=== PATIENT | female | born 1965 | race Caucasian/White ===

== ENCOUNTER 2019-09-13 11:12 | Emergency (ER) | payer BC, OTHER ==
[2019-09-13 11:21] VITALS: BP 159/63; PULSE 91
[2019-09-13] MEDS ORDERED: Albuterol/Ipratropium 3.0-0.5 MG/3 ML Neb Soln NEB ONE (11:28)
--- NOTE | 2019-09-13 12:15 | EDM.PDOC ---
ED HPI GENERAL MEDICAL PROBLEM - General Chief Complaint: Respiratory Problem Stated Complaint: UPPER RESPIRATORY PROBLEM Time Seen by Provider: 09/13/19 11:18 Source of Information: Reports: Patient, Family History Limitations: Reports: No Limitations - History of Present Illness INITIAL COMMENTS - FREE TEXT/NARRATIVE: The patient presents with a cough, congestion, and fever for about a week. She was evaluated at the walk in clinic and she was given some prednisone and an inhaler. She is not getting better. She has some shortness of breath at times. She has no chest pain. She has no history of asthma. She does not smoke. Onset: Gradual Duration: Week(s): Severity: Moderate Improves with: Reports: None Worsens with: Reports: None Associated Symptoms: Reports: Cough, Fever/Chills, Shortness of Breath. Denies : Chest Pain, Headaches, Nausea/Vomiting Generalized Pain Score (Numeric/FACES): 2 - Related Data Allergies Allergy/AdvReac Type Severity Reaction Status Date / Time No Known Allergies Allergy Verified 09/13/19 11:21 Home Meds: Home Meds Albuterol Sulfate [Proair Respiclick] 2 puff INH Q4H PRN 09/13/19 [History] Codeine/Promethazine [Phenergan with Codeine] 5 - 10 ml PO Q6HR PRN #300 ml 10/29 [Rx] Doxycycline [Vibramycin] 100 mg PO BID #14 cap 09/13/19 [Rx] Omeprazole Magnesium [Prilosec Otc] 20 mg PO Q48H 09/13/19 [History] Past Medical History Respiratory History: Reports: Sleep Apnea Gastrointestinal History: Reports: GERD Hematologic History: Reports: Other (See Below) Other Hematologic History: senocytosis - Past Surgical History GI Surgical History: Reports: Appendectomy, Cholecystectomy, Other (See Below) Other GI Surgeries/Procedures: splenectomy Social & Family History - Tobacco Use Smoking Status *Q: Never Smoker - Caffeine Use Caffeine Use: Reports: Coffee, Soda, Tea - Recreational Drug Use Recreational Drug Use: No ED ROS GENERAL - Review of Systems Review Of Systems: See Below Constitutional: Reports: Fever HEENT: Reports: No Symptoms Respiratory: Reports: Shortness of Breath, Cough Cardiovascular: Reports: No Symptoms Endocrine: Reports: No Symptoms GI/Abdominal: Reports: No Symptoms : Reports: No Symptoms Musculoskeletal: Reports: No Symptoms ED EXAM, GENERAL - Physical Exam Exam: See Below Exam Limited By: No Limitations General Appearance: Alert, No Apparent Distress Ears: Normal External Exam Nose: Normal Inspection Head: Atraumatic, Normocephalic Neck: Normal Inspection Respiratory/Chest: No Respiratory Distress, Wheezing Cardiovascular: Regular Rate, Rhythm, No Edema, No Murmur GI/Abdominal: Soft, Non-Tender, No Organomegaly, No Mass Back Exam: Normal Inspection Course - Vital Signs Last Recorded V/S: Last Vital Signs Temp 98.6 F 09/13/19 11:18 Pulse 91 09/13/19 11:18 Resp 18 09/13/19 11:18 BP 159/63 H 09/13/19 11:18 Pulse Ox 94 L 09/13/19 12:43 - Orders/Labs/Meds Orders: Active Orders 24 hr Category Date Time Status RT Aerosol Therapy [RC] ASDIRECTED Care 09/13/19 11:28 Active RT Aerosol Therapy [RC] ASDIRECTED Care 09/13/19 12:28 Active CXR [Chest 2V] [CR] Stat Exams 09/13/19 11:28 Taken Meds: Medications Discontinued Medications Generic Name Dose Route Start Last Admin Trade Name Freq PRN Reason Stop Dose Admin Albuterol 2.5 mg 09/13/19 12:28 09/13/19 12:43 Proventil Neb Soln NEB 09/13/19 12:29 2.5 mg ONETIME ONE Administration Albuterol/Ipratropium 3 ml 09/13/19 11:28 09/13/19 11:36 Duoneb 3.0-0.5 Mg/3 Ml NEB 09/13/19 11:29 3 ml ONETIME ONE Administration - Re-Assessments/Exams Free Text/Narrative Re-Assessment/Exam: 09/13/19 12:15 I ordered a CXR, influenza and a duoneb. 09/13/19 13:05 She is still wheezing so I ordered another albuterol. She sounds better after that. I will get her on some doxycycline and have her use the inhaler and something for the cough. Departure - Departure Time of Disposition: 13:20 Disposition: Home, Self-Care 01 Condition: Good Clinical Impression: Bronchitis Reactive airway disease Qualifiers: Asthma severity: mild Asthma persistence: intermittent Asthma complication type : with acute exacerbation Qualified Code(s): J45.21 - Mild intermittent asthma with (acute) exacerbation - Discharge Information *PRESCRIPTION DRUG MONITORING PROGRAM REVIEWED*: No *COPY OF PRESCRIPTION DRUG MONITORING REPORT IN PATIENT ALFRED: No Prescriptions: Codeine/Promethazine [Phenergan with Codeine] 5 - 10 ml PO Q6HR PRN #300 ml PRN Reason: Cough Doxycycline [Vibramycin] 100 mg PO BID #14 cap Referrals: Zainab Gonsales MD [Primary Care Provider] - 1 Week Forms: ED Department Discharge Additional Instructions: Take the doxycycline 2 times per day for 7 days. Take the phenergan with codeine as needed for any cough. Use the albuterol inhaler 2 puffs every 6 hours and use the inhaler. Please return if you are worse. Sepsis Event Note - Evaluation Sepsis Screening Result: No Definite Risk - Focused Exam Vital Signs: Vital Signs Temp Pulse Resp BP Pulse Ox Pulse Ox 09/13/19 12:43 94 L 09/13/19 11:36 94 L 09/13/19 11:18 98.6 F 91 18 159/63 H 92 L Date Exam was Performed: 09/13/19 Time Exam was Performed: 13:05 - My Orders Last 24 Hours: My Active Orders 09/13/19 11:28 RT Aerosol Therapy [RC] ASDIRECTED CXR [Chest 2V] [CR] Stat 09/13/19 12:28 RT Aerosol Therapy [RC] ASDIRECTED - Assessment/Plan Last 24 Hours: My Active Orders 09/13/19 11:28 RT Aerosol Therapy [RC] ASDIRECTED CXR [Chest 2V] [CR] Stat 09/13/19 12:28 RT Aerosol Therapy [RC] ASDIRECTED
[2019-09-13] MEDS ORDERED: Albuterol 0.083% 2.5 MG/3 ML Neb Soln NEB ONE (12:28)
--- NOTE | 2019-09-14 07:21 | CR ---
Chest: Two views of the chest were obtained. Comparison: Prior chest x-ray of 01/19/11. Heart size and mediastinum are normal. Lung markings are slightly increased most likely representing mild bronchitis. Lungs otherwise are clear. Bony structures show nothing acute. Surgical clips seen within the upper abdomen. Impression: 1. Lung markings are slightly increased likely representing bronchitis. 2. No other acute finding is seen. Diagnostic code #3 This report was dictated in [place] Standard Time
== END 2019-09-13 13:15 | disposition home or self-care (01) ==
LOC: JD.ED 11:12
DX: J45.21 Mild intermittent asthma with (acute) exacerbation (principal); K21.9 Gastro-esophageal reflux disease without esophagitis; Z79.899 Other long term (current) drug therapy
CPT/HCPCS: 71046; 71046-26; 87804; 94640; 99283; 99284-25; J7620-GY

== ENCOUNTER 2020-11-07 10:37 | Day surgery (SDC) | payer OTHER ==
[~2020-11-07 10:37] MED LIST: Albuterol 0.083% 2.5 MG/3 ML Neb Soln NEB SCH; EPINEPHrine 1 MG/ML 30 ML MDV IRR SCH; Lactated Ringers 1,000 ML IV SCH; Lidocaine 1%/Sod Bicarbonate in NS 8.4% 1 ML Syringe IDERM PRN; Sodium Chloride 0.9% 10 ML Syringe FLUSH PRN
--- NOTE | 2020-11-07 11:04 | PCM.PREANE ---
Preanesthetic Assessment - Procedure Proposed Procedure: Right knee video arthroscopy - Anesthesia/Transfusion/Family Hx Anesthesia History: Prior Anesthesia Without Reaction Family History of Anesthesia Reaction: No Transfusion History: No Prior Transfusion(s) - Review of Systems General: No Symptoms Pulmonary: No Symptoms Cardiovascular: No Symptoms Gastrointestinal: No Symptoms Neurological: No Symptoms Other: Reports: None - Physical Assessment NPO Status Date: 11/06/20 NPO Status Time: 00:00 Height: 1.65 m Weight: 93.168 kg ASA Class: 2 Mental Status: Alert & Oriented x3 Airway Class: Mallampati = 3 Dentition: Reports: Normal Dentition Thyro-Mental Finger Breadths: 2 Mouth Opening Finger Breadths: 2 ROM/Head Extension: Full Lungs: Clear to Auscultation, Normal Respiratory Effort Cardiovascular: Regular Rate, Regular Rhythm - Allergies Allergies/Adverse Reactions: Allergies Allergy/AdvReac Type Severity Reaction Status Date / Time No Known Allergies Allergy Verified 11/06/20 15:15 - Blood Blood Available: No Product(s) Available: None - Anesthesia Plan Pre-Op Medication Ordered: None - Acknowledgements Anesthesia Type Planned: General Anesthesia Pt an Appropriate Candidate for the Planned Anesthesia: Yes Alternatives and Risks of Anesthesia Discussed w Pt/Guardian: Yes Pt/Guardian Understands and Agrees with Anesthesia Plan: Yes PreAnesthesia Questionnaire HEENT History: Reports: None Cardiovascular History: Reports: None Respiratory History: Reports: Sleep Apnea, Other (See Below) Other Respiratory History: bronchitis, post viral reactive airway disease Gastrointestinal History: Reports: GERD, Other (See Below) Other Gastrointestinal History: asplenia, colon polyps, gastritis with hemorrohage, esophagitis Genitourinary History: Reports: Other (See Below) Other Genitourinary History: right breast mass, dense breasts PEDIATRIC IMMUNOLOGIST History: Reports: None Musculoskeletal History: Reports: None Neurological History: Reports: None Psychiatric History: Reports: None Hematologic History: Reports: Other (See Below) Other Hematologic History: thrombocytopenia, hereditary spherocytosis, asplenia, leukocytosis Immunologic History: Reports: None Oncologic (Cancer) History: Reports: None Dermatologic History: Reports: None - Infectious Disease History Infectious Disease History: Reports: None - Past Surgical History Head Surgeries/Procedures: Reports: None HEENT Surgical History: Reports: Eye Surgery Cardiovascular Surgical History: Reports: None Respiratory Surgical History: Reports: None GI Surgical History: Reports: Appendectomy, Cholecystectomy, EGD, Other (See Below) Other GI Surgeries/Procedures: splenectomy Female Surgical History: Reports: None Male Surgical History: Reports: None Endocrine Surgical History: Reports: None Neurological Surgical History: Reports: None Musculoskeletal Surgical History: Reports: None Oncologic Surgical History: Reports: None Dermatological Surgical History: Reports: None - SUBSTANCE USE Tobacco Use Status *Q: Former Tobacco User Tobacco Use Within Last Twelve Months: No Second Hand Smoke Exposure: No Days Per Week of Alcohol Use: 1 Number of Drinks Per Day: 1 Total Drinks Per Week: 1 Recreational Drug Use History: No - HOME MEDS Home Medications: Home Meds Albuterol Sulfate [Proair Respiclick] 2 puff INH Q4H PRN 09/13/19 [History] Omeprazole Magnesium [Prilosec Otc] 20 mg PO Q48H 09/13/19 [History] Calcium Carbonate [Calcium] 600 mg PO DAILY 11/06/20 [History] Lactobacillus Combination No.4 [Probiotic] 1 cap PO DAILY 11/06/20 [History] Multivitamin 1 tab PO DAILY 11/06/20 [History] Acetaminophen/HYDROcodone [[place] 325-5 MG] 1 - 2 tab PO Q6H PRN #15 tablet 11/07/20 [Rx] Aspirin [Aspirin EC] 325 mg PO BID #84 tab 11/07/20 [Rx] - CURRENT (IN HOUSE) MEDS Current Meds: Current Medications Albuterol (Albuterol 0.083% 2.5 Mg/3 Ml Neb Soln) 2.5 mg NEB ONETIME RICHARD Stop: 11/07/20 18:00 Epinephrine HCl (Epinephrine 1 Mg/Ml 30 Ml Mdv) 3 mg IRR ONETIME RICHARD Stop: 11/07/20 18:00 Lactated Ringer's (Ringers, Lactated) 1,000 mls @ 125 mls/hr IV ASDIRECTED RICHARD Stop: 11/07/20 23:00 Lidocaine/Sodium Bicarbonate (Lidocaine 1%/Sod Bicarbonate In Ns 8.4% 1 Ml Syringe) 0.25 ml IDERM ONETIME PRN PRN Reason: Prior to IV Start Stop: 11/07/20 23:00 Sodium Chloride (Sodium Chloride 0.9% 10 Ml Syringe) 10 ml FLUSH ASDIRECTED PRN PRN Reason: Keep Vein Open Stop: 11/07/20 23:00
[2020-11-07] MEDS ORDERED: fentaNYL 250 MCG/5 ML SDV ONE (11:14)
[2020-11-07] MEDS ORDERED: Ondansetron 4 MG/2 ML SDV ONE (11:14)
[2020-11-07] MEDS ORDERED: Propofol 200 MG/20 ML SDV ONE (11:14)
[2020-11-07] MEDS ORDERED: Midazolam 1 MG/ML 2 ML SDV ONE (11:14)
[2020-11-07] MEDS ORDERED: Lidocaine 1% 4 ML ONE (11:15)
[2020-11-07] MEDS ORDERED: Ketorolac 30 MG/ML SDV ONE (11:15)
[2020-11-07] MEDS ORDERED: ceFAZolin 1 GM Vial ONE (11:19)
[2020-11-07] MEDS ORDERED: Bupivacaine 0.25% 10 ML SDV ONE (11:20)
[2020-11-07] MEDS ORDERED: HYDROmorphone 1 MG/ML Syringe ONE (12:49)
[2020-11-07] MEDS ORDERED: fentaNYL 100 MCG/2 ML SDV IVPUSH PRN (13:22)
--- NOTE | 2020-11-07 13:23 | PCM.POSTAN ---
POST ANESTHESIA ASSESSMENT - MENTAL STATUS Mental Status: Somnolent - VITAL SIGNS Vital Signs: Last Vital Signs Temp 36.9 C 11/07/20 10:45 Pulse 73 11/07/20 10:45 Resp 16 11/07/20 10:45 BP 132/71 11/07/20 10:45 Pulse Ox 97 11/07/20 10:45 - RESPIRATORY Respiratory Status: Respiratory Rate WNL, Airway Patent, O2 Saturation Stable, Supplemental Oxygen - CARDIOVASCULAR CV Status: Pulse Rate WNL, Blood Pressure Stable - GASTROINTESTINAL GI Status: No Symptoms - PAIN Pain Score: 0 - POST OP HYDRATION Hydration Status: Adequate & Stable - OBSERVATIONS Free Text/Narrative:: NO ANESTHESIA COMPLICATIONS NOTED
--- NOTE | 2020-11-07 14:16 | PCM48HPAN ---
Post Anesthesia Note - EVALUATION WITHIN 48HRS OF ANESTHETIC Vital Signs in Normal Range: Yes Patient Participated in Evaluation: Yes Respiratory Function Stable: Yes Airway Patent: Yes Cardiovascular Function Stable: Yes Hydration Status Stable: Yes Pain Control Satisfactory: Yes Nausea and Vomiting Control Satisfactory: Yes Mental Status Recovered: Yes Vital Signs: Last Vital Signs Temp 36.6 C 11/07/20 14:15 Pulse 63 11/07/20 14:15 Resp 14 11/07/20 14:15 BP 112/53 L 11/07/20 14:15 Pulse Ox 97 11/07/20 14:15
[2020-11-07 15:10] VITALS: BP 110/47; PULSE 62
--- NOTE | 2020-11-21 07:00 | PCM.OPNOTE ---
- General Post-Op/Procedure Note Date of Surgery/Procedure: 11/07/20 Operative Procedure(s): right knee video arthroscopy with partial medial and lateral meniscectomy Pre Op Diagnosis: right knee medial meniscus tear Post-Op Diagnosis: same with lateral meniscus tear Anesthesia Technique: General LMA, Local Primary Surgeon: Joshua Rodriguez Anesthesia Provider: Deon Ambrose Medical Editor: Mary Murphy EBAnil in mLs: 5 Complications: None Condition: Good
--- NOTE | 2020-11-21 07:35 | OR ---
DATE OF OPERATION: 11/07/2020 SURGEON: Joshua Rodriguez MD OPERATION PERFORMED: Right knee video arthroscopy with partial medial and lateral meniscectomy. PREOPERATIVE DIAGNOSIS: Right knee medial meniscus tear. POSTOPERATIVE DIAGNOSIS: Right knee medial meniscus tear with lateral meniscus tear. ANESTHESIA: General LMA with local. ANESTHESIA PROVIDER: Harry Horn. INSPECT[employer] HEAD: Mary Murphy PA-C ESTIMATED BLOOD LOSS: Less than 5 mL. COMPLICATIONS: None. CONDITION: Stable. DESCRIPTION OF PROCEDURE: The patient was identified in the preoperative holding area. Proper site was marked and identified by surgeon. The patient was taken back to the operative theater, where after adequate anesthesia, the patient's left lower extremity was placed in a well leg ram. Right lower extremity had a nonsterile tourniquet applied, which was then placed in a C-clamp ram. Foot of the bed was then lowered. Right lower extremity was sterilely prepped and draped in the usual sterile fashion. OR time-out was performed. The patient received 2 g IV Ancef. At this time, right lower extremity was exsanguinated. Tourniquet was insufflated to 250 mmHg. Standard anterior lateral portal incision was made. Scope trocar was introduced. 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 Attention was turned to the medial compartment. With the use of a spinal needle, anteromedial portal was created. The patient was noted to have a posterior flap tear, roughly 20% of the posterior horn of the medial meniscus. A partial medial meniscectomy was then performed back to a stable rim. The patient had some grade 1/2 chondromalacia on the medial femoral condyle, but otherwise none on the tibial plateau. Attention was turned to the notch. ACL was intact in the notch. Lateral compartment did show a discoid meniscus with tearing of the central portion. At this time, a partial lateral meniscectomy back to a stable border was also done. Excess saline was drained from the knee. 3-0 nylon suture was used for closure of the skin. The patient tolerated the procedure well, was placed in a sterile soft dressing, and sent to the PACU in stable condition. MMODAL /[id number]
== END 2020-11-07 14:56 | disposition home or self-care (01) ==
LOC: JD.SDS 10:37
PROVIDERS: ATTEND Orthopaedic Surgery
DX: S83.281A Other tear of lateral meniscus, current injury, right knee, initial encounter (principal); S83.241A Other tear of medial meniscus, current injury, right knee, initial encounter; M22.41 Chondromalacia patellae, right knee; D47.3 Essential (hemorrhagic) thrombocythemia; D58.0 Hereditary spherocytosis; Q89.01 Asplenia (congenital); G47.30 Sleep apnea, unspecified; Z79.82 Long term (current) use of aspirin; Z79.899 Other long term (current) drug therapy; Z87.891 Personal history of nicotine dependence; Z98.890 Other specified postprocedural states; X58.XXXA Exposure to other specified factors, initial encounter
CPT/HCPCS: 29880; J0690; J1170; J1885; J2250; J2405; J2704; J3010; J3490; J7120; 01400

== ENCOUNTER 2021-07-23 06:50 | Day surgery (SDC) | payer OTHER ==
[~2021-07-23 06:50] MED LIST changes: -Albuterol 0.083% 2.5 MG/3 ML Neb Soln NEB SCH; -EPINEPHrine 1 MG/ML 30 ML MDV IRR SCH; -Sodium Chloride 0.9% 10 ML Syringe FLUSH PRN; +Sodium Chloride 0.9% 10 ML Syringe FLUSH SCH
[2021-07-23] MEDS ORDERED: Bupivacaine 0.5% 30 ML SDV ONE (07:27)
[2021-07-23] MEDS ORDERED: Lactated Ringers 1,000 ML IV SCH (07:30)
[2021-07-23] MEDS ORDERED: Albuterol/Ipratropium 3.0-0.5 MG/3 ML Neb Soln NEB PRN (07:35)
[2021-07-23] MEDS ORDERED: Ondansetron 4 MG/2 ML SDV IVPUSH PRN (07:36)
[2021-07-23] MEDS ORDERED: fentaNYL 100 MCG/2 ML SDV IVPUSH PRN (07:36)
[2021-07-23] MEDS ORDERED: HYDROmorphone 0.5 MG/0.5 ML Syringe IVPUSH PRN (07:36)
[2021-07-23] MEDS ORDERED: Propofol 200 MG/20 ML SDV ONE (07:39)
[2021-07-23] MEDS ORDERED: fentaNYL 250 MCG/5 ML SDV ONE (07:39)
[2021-07-23] MEDS ORDERED: Midazolam 1 MG/ML 2 ML SDV ONE (07:39)
[2021-07-23] MEDS ORDERED: Rocuronium 50 MG/5 ML Vial ONE ×2 (07:45→08:43)
[2021-07-23] MEDS ORDERED: ceFAZolin 1 GM Vial ONE (07:46)
[2021-07-23] MEDS ORDERED: Ondansetron 4 MG/2 ML SDV ONE (08:36)
[2021-07-23] MEDS ORDERED: Dexamethasone 4 MG/ML 5 ML MDV ONE ×2 (08:36→11:07)
[2021-07-23] MEDS ORDERED: HYDROmorphone 0.5 MG/0.5 ML Syringe ONE ×3 (08:52→10:18)
[2021-07-23] MEDS ORDERED: Ketamine 500 mg/10 ML MDV ONE (08:53)
[2021-07-23] MEDS ORDERED: ePHEDrine 50 MG/ML SDV ONE (08:54)
[2021-07-23] MEDS: Lidocaine 1% with EPINEPHrine 1:100,000 20 ML MDV ONE ×2 (09:09→09:25)
[2021-07-23] MEDS ORDERED: Ketorolac 30 MG/ML SDV ONE (09:25)
[2021-07-23] MEDS ORDERED: Lactated Ringers 1,000 ML ONE ×2 (09:30)
[2021-07-23] MEDS ORDERED: ceFAZolin 2 GM in Premix Bag 1 BAG IV SCH (11:15)
[2021-07-23] MEDS ORDERED: Acetaminophen/oxyCODONE 325-5 MG Tab PO ONE (13:11)
[2021-07-23 14:45] VITALS: BP 128/72
[2021-07-23 15:07] VITALS: PULSE 76
== END 2021-07-23 15:10 | disposition home or self-care (01) ==
LOC: JD.SDS 06:50
PROVIDERS: ATTEND Obstetrics & Gynecology
DX: N80.0 Endometriosis of uterus (principal); N70.11 Chronic salpingitis; N83.8 Other noninflammatory disorders of ovary, fallopian tube and broad ligament; G47.33 Obstructive sleep apnea (adult) (pediatric); I25.2 Old myocardial infarction; Z90.49 Acquired absence of other specified parts of digestive tract; Z98.890 Other specified postprocedural states; Z87.891 Personal history of nicotine dependence; Z79.899 Other long term (current) drug therapy
CPT/HCPCS: 36415; 58554; 80048; 85025; 86850; 86900; 86901; A9270; J0690; J1100; J1170; J1885; J2250; J2405; J2704; J2710; J3010; J3490; J7120; 00944; J7620-GY